=== PATIENT | female | born 2000 | race Caucasian/White ===

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

== ENCOUNTER 2019-05-02 13:55 | Emergency (ER) | payer OTHER ==
[2019-05-02 14:03] VITALS: BP 120/57; PULSE 69; RESP 18; TEMP 98.4
[2019-05-02 15:01] LABS: Basophils # (A) 0.1 k/uL (0-0.2); Basophils % (A) 1 %; Eosinophils # (A) 0.3 k/uL (0-0.7); Eosinophils % (A) 3 %; HCT 45.7 % (34.0-46.0); HGB 14.8 gm/dL (11.4-16.0); Lymphocytes # (A) 2.1 k/uL (1.0-4.8); Lymphocytes % (A) 18 %; MCH 29.2 pg (25.0-35.0); MCHC 32.5 g/dL (31.0-37.0); MCV 89.8 fL (80.0-100.0); Mean Platelet Volume 7.6; Monocytes # (A) 0.6 k/uL (0-1.0); Monocytes % (A) 5 %; Neutrophils # (A) 8.1 k/uL (1.3-7.7); Neutrophils % (A) 72 %; Platelet Count 319 k/uL (150-450); RBC 5.08 m/uL (3.80-5.40); RDW 12.8 % (11.5-15.5); WBC 11.4 k/uL (4.0-11.0)
[2019-05-02 15:12] LABS: ALT 21 U/L (9-52); AST 23 U/L (14-36); African American GFR (CKD) >90 (>60 ml/min/1.73 sqM); Albumin 5.1 g/dL (3.5-5.0); Alkaline Phosphatase 49 U/L (38-126); Anion Gap 11 mmol/L; Blood Urea Nitrogen 13 mg/dL (7-17); Carbon Dioxide 22 mmol/L (22-30); Chloride 107 mmol/L (98-107); Glucose 94 mg/dL (74-99); Potassium 4.5 mmol/L (3.5-5.1); Sodium 140 mmol/L (137-145); Total Bilirubin 0.3 mg/dL (0.2-1.3); Total Protein 8.4 g/dL (6.3-8.2)
[2019-05-02 15:26] LABS: Appearance,Urine Clear (Clear); Bilirubin,Urine Negative (Negative); Blood,Urine Moderate (Negative); Color,Urine Yellow; Glucose,Urine (UA) Negative (Negative); Ketones,Urine Negative (Negative); Leukocyte Esterase,Urine Negative (Negative); Mucus,Urine Rare /hpf; Nitrite,Urine Negative (Negative); Protein,Urine Negative (Negative); RBC,Urine 1 /hpf (0-5); Squamous Epithelial Cell,Urine 2 /hpf (0-4); Urobilinogen,Urine <2.0 mg/dL (<2.0); WBC,Urine 1 /hpf (0-5)
[2019-05-02 15:27] LABS: HCG,Quantitative Serum 4256.5 mIU/mL
--- NOTE | 2019-05-02 15:35 | US ---
EXAMINATION TYPE: Ultrasound OB <= 14 WEEKS TRANSVAGINAL DATE OF EXAM: 05/02/2019 3:10 PM COMPARISON: NONE CLINICAL HISTORY: 19-year-old female pain. Spotting x 1 hour EXAM PERFORMED: Transvaginal (TV) and Transabdominal (TA) FINDINGS: EXAM MEASUREMENTS: GESTATIONAL AGE / DATING Physician Established: Not established yet Dates by LMP: Unknown Dates by First Scan: This is 1st scan Dates by Current Scan for: No pole or yolk sac seen MATERNAL ANATOMY Uterus: 8.8 x 4.2 x 6.2cm, anteverted Right Ovary: 3.4 x 2.0 x 2.1cm Left Ovary: not seen Post CDS / Adnexa: wnl Presence of free fluid: no Presence of corpus luteal cyst: not seen Presence of subchorionic bleed: 1.5 x 1.1 x 1.2cm hypoechoic area seen GESTATION / SURVEY No pole or yolk sac seen at this time MSD: 0.9cm Measurement out of range: too early to date Date of LMP: Unknown Beta HcG (if available): Not available at time of exam. IMPRESSION: 1. Cystic locule within the uterus, possible gestational sac measuring 9 mm. Differential considerati ons include early intrauterine , failed , and pseudogestational sac of a nonvisuali zed ectopic . Note that a yolk sac should be seen with an MSD of 10 mm. Therefore, appropria te follow-up is recommended. 2. A 1.5 cm perigestational bleed adjacent to the probable gestational sac.
--- NOTE | 2019-05-02 17:04 | ED ---
Female Urogenital HPI - General Chief complaint: Vaginal Bleeding Stated complaint: 5 wks preg/bleeding Time Seen by Provider: 05/02/19 14:05 Source: patient Mode of arrival: ambulatory Limitations: no limitations - History of Present Illness Initial comments: Patient is a 19-year-old, 4 week , female presents to emergency department with 1 day of vaginal bleeding. Patient reports that she found out was using a home test. Patient reports she went to her primary care physician who collect a beta Quant and determined that she was . Patient reports mild abdominal cramping but denies back pain, flank pain, vaginal discharge, increased frequency or urgency, dysuria, hematuria, hematochezia or melena.. Patient denies headache, syncope, shortness of breath, chest pain nausea, vomiting or diarrhea. Patient denies taking medication to alleviate the pain. - Related Data Home Medications Medication Instructions Recorded Confirmed guaiFENesin [Mucinex] 600 mg PO Q12H PRN 11/07/18 11/07/18 Allergies Allergy/AdvReac Type Severity Reaction Status Date / Time No Known Allergies Allergy Verified 05/02/19 14:03 Review of Systems ROS Statement: Those systems with pertinent positive or pertinent negative responses have been documented in the HPI. ROS Other: All systems not noted in ROS Statement are negative. Past Medical History Past Medical History: Pneumonia Additional Past Medical History / Comment(s): suicidal thoughts, depression, anxiety History of Any Multi-Drug Resistant Organisms: None Reported Past Surgical History: No Surgical Hx Reported Past Psychological History: Anxiety, Depression Smoking Status: Never smoker Past Alcohol Use History: None Reported Past Drug Use History: Marijuana General Exam Limitations: no limitations General appearance: alert, in no apparent distress Head exam: Present: atraumatic, normocephalic, normal inspection Eye exam: Present: normal appearance, PERRL, EOMI Pupils: Present: normal accommodation ENT exam: Present: normal exam Neck exam: Present: normal inspection Respiratory exam: Present: normal lung sounds bilaterally Cardiovascular Exam: Present: regular rate, normal rhythm, normal heart sounds GI/Abdominal exam: Present: soft. Absent: tenderness External exam: Present: erythema. Absent: swelling, lesions, lacerations Speculum exam: Present: vaginal bleeding (Mild), other (Closed cervical os) Extremities exam: Present: normal inspection, full ROM, normal capillary refill Back exam: Present: normal inspection, full ROM. Absent: CVA tenderness (R), CVA tenderness (L) Neurological exam: Present: alert, oriented X3 Psychiatric exam: Present: normal affect, normal mood Skin exam: Present: warm, intact, normal color Course Vital Signs 05/02/19 05/02/19 14:01 17:40 Temperature 98.4 F 98.4 F Pulse Rate 69 Respiratory 18 18 Rate Blood Pressure 120/57 O2 Sat by Pulse 99 99 Oximetry Medical Decision Making - Medical Decision Making Patient is a 19-year-old, 4 week , female presents emergency Department for 1 day of vaginal bleeding. CBC and CMP are unremarkable. Beta Quant is a proximally 4200. Transvaginal ultrasound was not able to detect a pole or yolk sac. Transvaginal ultrasound is able to take a cystic locule in the uterus measuring 9 mm. With a beta Quant level 4200 an intrauterine should be visible on the ultrasound patient advised to have a repeat beta hCG Quant and transvaginal ultrasound after 48 hours. Patient advised to follow-up with Dr. Sykes who was consulted regarding this case. The case was thoroughly discussed with Dr. Matamoros who also examined the patient and is in agreement with the treatment plan. - Lab Data Result diagrams: 05/02/19 14:33 05/02/19 14:33 Lab Results 05/02/19 05/02/19 05/02/19 Range/Units 14:33 14:33 14:33 WBC 11.4 H (4.0-11.0) k/uL RBC 5.08 (3.80-5.40) m/uL Hgb 14.8 (11.4-16.0) gm/dL Hct 45.7 (34.0-46.0) % MCV 89.8 (80.0-100.0) fL MCH 29.2 (25.0-35.0) pg MCHC 32.5 (31.0-37.0) g/dL RDW 12.8 (11.5-15.5) % Plt Count 319 (150-450) k/uL Neutrophils % 72 % Lymphocytes % 18 % Monocytes % 5 % Eosinophils % 3 % Basophils % 1 % Neutrophils # 8.1 H (1.3-7.7) k/uL Lymphocytes # 2.1 (1.0-4.8) k/uL Monocytes # 0.6 (0-1.0) k/uL Eosinophils # 0.3 (0-0.7) k/uL Basophils # 0.1 (0-0.2) k/uL Sodium 140 (137-145) mmol/L Potassium 4.5 (3.5-5.1) mmol/L Chloride 107 (98-107) mmol/L Carbon Dioxide 22 (22-30) mmol/L Anion Gap 11 mmol/L BUN 13 (7-17) mg/dL Creatinine 0.58 (0.52-1.04) mg/dL Est GFR (CKD-EPI)AfAm >90 (>60 ml/min/1.73 sqM) Est GFR (CKD-EPI)NonAf >90 (>60 ml/min/1.73 sqM) Glucose 94 (74-99) mg/dL Calcium 10.0 (8.4-10.2) mg/dL Total Bilirubin 0.3 (0.2-1.3) mg/dL AST 23 (14-36) U/L ALT 21 (9-52) U/L Alkaline Phosphatase 49 (38-126) U/L Total Protein 8.4 H (6.3-8.2) g/dL Albumin 5.1 H (3.5-5.0) g/dL HCG, Quant 4256.5 mIU/mL Urine Color Urine Appearance (Clear) Urine pH (5.0-8.0) Ur Specific [place] (1.001-1.035) Urine Protein (Negative) Urine Glucose (UA) (Negative) Urine Ketones (Negative) Urine Blood (Negative) Urine Nitrite (Negative) Urine Bilirubin (Negative) Urine Urobilinogen (<2.0) mg/dL Ur Leukocyte Esterase (Negative) Urine RBC (0-5) /hpf Urine WBC (0-5) /hpf Ur Squamous Epith Cells (0-4) /hpf Urine Mucus (None) /hpf Blood Type A Positive Blood Type Recheck No Antibody Screen NEGATIVE Spec Expiration Date 05/05/2019 - 233205/02/19 Range/Units 15:15 WBC (4.0-11.0) k/uL RBC (3.80-5.40) m/uL Hgb (11.4-16.0) gm/dL Hct (34.0-46.0) % MCV (80.0-100.0) fL MCH (25.0-35.0) pg MCHC (31.0-37.0) g/dL RDW (11.5-15.5) % Plt Count (150-450) k/uL Neutrophils % % Lymphocytes % % Monocytes % % Eosinophils % % Basophils % % Neutrophils # (1.3-7.7) k/uL Lymphocytes # (1.0-4.8) k/uL Monocytes # (0-1.0) k/uL Eosinophils # (0-0.7) k/uL Basophils # (0-0.2) k/uL Sodium (137-145) mmol/L Potassium (3.5-5.1) mmol/L Chloride (98-107) mmol/L Carbon Dioxide (22-30) mmol/L Anion Gap mmol/L BUN (7-17) mg/dL Creatinine (0.52-1.04) mg/dL Est GFR (CKD-EPI)AfAm (>60 ml/min/1.73 sqM) Est GFR (CKD-EPI)NonAf (>60 ml/min/1.73 sqM) Glucose (74-99) mg/dL Calcium (8.4-10.2) mg/dL Total Bilirubin (0.2-1.3) mg/dL AST (14-36) U/L ALT (9-52) U/L Alkaline Phosphatase (38-126) U/L Total Protein (6.3-8.2) g/dL Albumin (3.5-5.0) g/dL HCG, Quant mIU/mL Urine Color Yellow Urine Appearance Clear (Clear) Urine pH 6.0 (5.0-8.0) Ur Specific [place] 1.020 (1.001-1.035) Urine Protein Negative (Negative) Urine Glucose (UA) Negative (Negative) Urine Ketones Negative (Negative) Urine Blood Moderate H (Negative) Urine Nitrite Negative (Negative) Urine Bilirubin Negative (Negative) Urine Urobilinogen <2.0 (<2.0) mg/dL Ur Leukocyte Esterase Negative (Negative) Urine RBC 1 (0-5) /hpf Urine WBC 1 (0-5) /hpf Ur Squamous Epith Cells 2 (0-4) /hpf Urine Mucus Rare H (None) /hpf Blood Type Blood Type Recheck Antibody Screen Spec Expiration Date Disposition Clinical Impression: Vaginal bleeding Disposition: HOME SELF-CARE Condition: Stable Instructions (If sedation given, give patient instructions): Ectopic (DC), Threatened Miscarriage (ED) Additional Instructions: Please obtain a follow-up beta hCG Quant after 48 hours. Please follow up with OB. Please return to emergency department if symptoms worsen. Is patient prescribed a controlled substance at d/c from ED?: No Referrals: Duane Goyal DO [Primary Care Provider] - 1-2 days Elaine Sykes MD [STAFF PHYSICIAN] - 1-2 days Time of Disposition: 17:03
== END 2019-05-02 17:40 | disposition home or self-care (01) ==
LOC: EC 13:55
DX: N93.9 Abnormal uterine and vaginal bleeding, unspecified (principal); R10.9 Unspecified abdominal pain
CPT/HCPCS: 36415; 76801; 76817; 80053; 81001; 84702; 85025; 86850; 86900; 86901; 99284

== ENCOUNTER 2019-05-04 06:35 | Emergency (ER) | payer OTHER ==
[2019-05-04 06:45] VITALS: TEMP 98.5
--- NOTE | 2019-05-04 07:30 | ED ---
Female Urogenital HPI - General Chief complaint: Vaginal Bleeding Stated complaint: Vaginal Bleeding, pgt Time Seen by Provider: 05/04/19 07:05 Source: patient, RN notes reviewed, old records reviewed Mode of arrival: ambulatory Limitations: no limitations - History of Present Illness Initial comments: 19-year-old female presented today for evaluation for complaints of vaginal bleeding. She was sinus with threatened miscarriage 2 days ago. Head that time her hCG levels 4300. Patient states that she had minimal bleeding over the past 2 days but this morning woke up to have a clotting. Patient reports that she has had no other symptoms at this time. Denies any dizziness or lightheadedness. Patient states that she is a Patient. She was supposed to follow-up with Dr. solano today was concerned with the cramping and clots. She stated that she felt she did come to ER for reevaluation. - Related Data Home Medications Medication Instructions Recorded Confirmed Wra-Ppzd-Clkfr Acid 1 cap PO DAILY 05/04/19 05/04/19 [-U Capsule (formulary)] Allergies Allergy/AdvReac Type Severity Reaction Status Date / Time No Known Allergies Allergy Verified 05/04/19 07:36 Review of Systems ROS Statement: Those systems with pertinent positive or pertinent negative responses have been documented in the HPI. ROS Other: All systems not noted in ROS Statement are negative. Past Medical History Past Medical History: Pneumonia Additional Past Medical History / Comment(s): suicidal thoughts, depression, anxiety History of Any Multi-Drug Resistant Organisms: None Reported Past Surgical History: No Surgical Hx Reported Past Psychological History: Anxiety, Depression Smoking Status: Never smoker Past Alcohol Use History: None Reported Past Drug Use History: Marijuana General Exam - General Exam Comments Initial Comments: 19-year-old female. Alert and oriented. No distress. Limitations: no limitations General appearance: alert, in no apparent distress Head exam: Present: atraumatic, normocephalic, normal inspection Eye exam: Present: normal appearance, PERRL, EOMI. Absent: scleral icterus, conjunctival injection, periorbital swelling ENT exam: Present: normal exam, mucous membranes moist Neck exam: Present: normal inspection. Absent: tenderness, meningismus, lymphadenopathy Respiratory exam: Present: normal lung sounds bilaterally. Absent: respiratory distress, wheezes, rales, rhonchi, stridor Cardiovascular Exam: Present: regular rate, normal rhythm, normal heart sounds. Absent: systolic murmur, diastolic murmur, rubs, gallop, clicks GI/Abdominal exam: Present: soft, normal bowel sounds. Absent: distended, tenderness, guarding, rebound, rigid Extremities exam: Present: normal inspection, full ROM, normal capillary refill. Absent: tenderness, pedal edema, joint swelling, calf tenderness Back exam: Present: normal inspection Neurological exam: Present: alert, oriented X3, CN II-XII intact Psychiatric exam: Present: normal affect, normal mood Skin exam: Present: warm, dry, intact, normal color. Absent: rash Course Vital Signs 05/04/19 06:41 Temperature 98.5 F Pulse Rate 70 Respiratory 20 Rate Blood Pressure 147/87 O2 Sat by Pulse 100 Oximetry Medical Decision Making - Medical Decision Making 19-year-old female presents or shortness of vaginal bleeding. She was sinus with a miscarriage 2 days. At this time patient's hCG level is 2800. This is decreased from her previous one of 4200. Discussed the patient's likely complete miscarriage. Patient is A+ blood type. Patient denies a follow-up w [facility]. Her CBC was normal in this. All questions answered. - Lab Data Result diagrams: 05/04/19 07:39 Lab Results 05/04/19 05/04/19 Range/Units 07:39 07:39 WBC 10.0 (4.0-11.0) k/uL RBC 4.85 (3.80-5.40) m/uL Hgb 13.9 (11.4-16.0) gm/dL Hct 43.6 (34.0-46.0) % MCV 89.9 (80.0-100.0) fL MCH 28.7 (25.0-35.0) pg MCHC 31.9 (31.0-37.0) g/dL RDW 12.8 (11.5-15.5) % Plt Count 304 (150-450) k/uL Neutrophils % 71 % Lymphocytes % 18 % Monocytes % 7 % Eosinophils % 2 % Basophils % 0 % Neutrophils # 7.1 (1.3-7.7) k/uL Lymphocytes # 1.8 (1.0-4.8) k/uL Monocytes # 0.7 (0-1.0) k/uL Eosinophils # 0.2 (0-0.7) k/uL Basophils # 0.0 (0-0.2) k/uL HCG, Quant 2836.1 mIU/mL Disposition Clinical Impression: Miscarriage Disposition: HOME SELF-CARE Condition: Good Instructions (If sedation given, give patient instructions): Miscarriage (ED) Additional Instructions: Follow-up with Dr. Sykes. Return to the emergency department if any alarming signs or symptoms occur. Is patient prescribed a controlled substance at d/c from ED?: No Referrals: Duane Goyal DO [Primary Care Provider] - 1-2 days Time of Disposition: 08:34
[2019-05-04 07:52] LABS: Basophils % (A) 0 %; Eosinophils # (A) 0.2 k/uL (0-0.7); Eosinophils % (A) 2 %; HCT 43.6 % (34.0-46.0); HGB 13.9 gm/dL (11.4-16.0); Lymphocytes # (A) 1.8 k/uL (1.0-4.8); Lymphocytes % (A) 18 %; MCH 28.7 pg (25.0-35.0); MCHC 31.9 g/dL (31.0-37.0); MCV 89.9 fL (80.0-100.0); Mean Platelet Volume 7.8; Monocytes # (A) 0.7 k/uL (0-1.0); Monocytes % (A) 7 %; Neutrophils # (A) 7.1 k/uL (1.3-7.7); Neutrophils % (A) 71 %; Platelet Count 304 k/uL (150-450); RBC 4.85 m/uL (3.80-5.40); RDW 12.8 % (11.5-15.5)
[2019-05-04 09:07] VITALS: BP 151/92; PULSE 77; RESP 18
== END 2019-05-04 09:05 | disposition home or self-care (01) ==
LOC: EC 06:35
DX: O03.9 Complete or unspecified spontaneous abortion without complication (principal)
CPT/HCPCS: 36415; 84702; 85025; 99284

== ENCOUNTER 2020-07-02 09:10 | Emergency (ER) | payer OTHER ==
[2020-07-02 09:14] VITALS: RESP 18
[2020-07-02] MEDS ORDERED: ACETAMINOPHEN TAB 500 MG TAB PO STA (09:41)
[2020-07-02] MEDS ORDERED: IBUPROFEN 600 MG TAB PO STA (09:41)
--- NOTE | 2020-07-02 09:44 | ED ---
Fever HPI - General Chief Complaint: Fever Stated Complaint: fever, headache Time Seen by Provider: 07/02/20 09:19 Source: patient, RN notes reviewed, old records reviewed Mode of arrival: ambulatory Limitations: no limitations - History of Present Illness Initial Comments: Patient is a 20-year-old female who presents emergency Department today with com plaints of fever or sore throat and swollen glands for the past 4 days. She denies any history of sick contacts. She denies a significant history of strep infections in the past. Patient denies any recent Motrin or Tylenol but did take that earlier this week for fevers. Patient denies any cough or shortness of breath. - Related Data Home Medications Medication Instructions Recorded Confirmed Zqy-Wnil-Vzgut Acid 1 cap PO DAILY 05/04/19 05/04/19 [-U Capsule (formulary)] Previous Rx's Medication Instructions Recorded Azithromycin [Zithromax Z-pack] 250 mg PO DIRECTED #6 tab 07/02/20 methylPREDNISolone [Medrol Dose 4 mg PO DIRECTED #1 pack 07/02/20 Pack] Allergies Allergy/AdvReac Type Severity Reaction Status Date / Time No Known Allergies Allergy Verified 07/02/20 09:14 Review of Systems ROS Statement: Those systems with pertinent positive or pertinent negative responses have been documented in the HPI. ROS Other: All systems not noted in ROS Statement are negative. Past Medical History Past Medical History: Pneumonia Additional Past Medical History / Comment(s): suicidal thoughts, depression, anxiety History of Any Multi-Drug Resistant Organisms: None Reported Past Surgical History: No Surgical Hx Reported Past Psychological History: Anxiety, Depression Smoking Status: Current every day smoker Past Alcohol Use History: None Reported Past Drug Use History: Marijuana General Exam - General Exam Comments Initial Comments: 20-year-old female. Alert and oriented 3. No significant distress. Limitations: no limitations General appearance: alert, in no apparent distress Head exam: Present: atraumatic, normocephalic, normal inspection Eye exam: Present: normal appearance, PERRL, EOMI. Absent: scleral icterus, conjunctival injection, periorbital swelling ENT exam: Present: normal exam, mucous membranes moist, other (Patient has evidence of tender left-sided anterior cervical lymphadenopathy. Slightly erythematous tonsils. No significant exudates. No uvula deviation) Neck exam: Present: normal inspection. Absent: tenderness, meningismus, lymphadenopathy Respiratory exam: Present: normal lung sounds bilaterally. Absent: respiratory distress, wheezes, rales, rhonchi, stridor Cardiovascular Exam: Present: regular rate, normal rhythm, normal heart sounds. Absent: systolic murmur, diastolic murmur, rubs, gallop, clicks Back exam: Present: normal inspection Neurological exam: Present: alert, oriented X3, CN II-XII intact Psychiatric exam: Present: normal affect, normal mood Course Vital Signs 07/02/20 09:11 Temperature 100.3 F H Pulse Rate 104 H Respiratory 18 Rate Blood Pressure 136/83 O2 Sat by Pulse 99 Oximetry Medical Decision Making - Medical Decision Making 20-year-old female presents with 3 days of fever, swollen lymph nodes. Patient has a low-grade temperature of 100.3 upon arrival. Patient at this time does have some tender cervical lymphadenopathy. Mildly erythematous tonsils. Rapid strep is negative. Will complete culture. Her heterophile test is negative. She was filed for cold appeared she is no other significant symptoms at this time clinically appears well. Discussed likely viral pharyngitis and lymphadenopathy. Discussed waiting for Colton reyes. Discussed return parameters. - Lab Data Lab Results 07/02/20 07/02/20 Range/Units 10:16 10:16 Heterophile Antibody Negative (Negative) Group A Strep Rapid Negative (Negative) Disposition Clinical Impression: Lymphadenopathy of left cervical region, Pharyngitis Disposition: HOME SELF-CARE Condition: Good Instructions (If sedation given, give patient instructions): Pharyngitis (ED), Lymphadenopathy (ED) Additional Instructions: Follow up with PCP. Take steriods. If fever and symptoms persist for another1-2 days start azithromycin. Covid test is pending for the next 2 days. Social distance and self quarantine until these results are done. Return to ED if any alarming signs or symptoms occur. Prescriptions: methylPREDNISolone [Medrol Dose Pack] 4 mg PO DIRECTED #1 pack Azithromycin [Zithromax Z-pack] 250 mg PO DIRECTED #6 tab Is patient prescribed a controlled substance at d/c from ED?: No Referrals: Duane Goyal DO [Primary Care Provider] - 1-2 days Time of Disposition: 10:58
[2020-07-02 11:15] VITALS: BP 141/84; PULSE 84; TEMP 98.4
== END 2020-07-02 11:16 | disposition home or self-care (01) ==
LOC: EC 09:10
DX: J02.9 Acute pharyngitis, unspecified (principal); F17.200 Nicotine dependence, unspecified, uncomplicated; Z20.828 Contact with and (suspected) exposure to other viral communicable diseases
CPT/HCPCS: 36415; 86308; 87081; 87430; 99284; U0003

== ENCOUNTER 2020-07-08 20:41 | Emergency (ER) | payer OTHER ==
[2020-07-08] MEDS ORDERED: SODIUM CHLORIDE 0.9% 1,000 ML IV ONE (20:57)
[2020-07-08] MEDS ORDERED: DEXAMETHASONE SOD PHOSPHATE 4 MG/ML 1 ML VIAL IV STA (21:07)
[2020-07-08] MEDS ORDERED: IBUPROFEN 800 MG TAB PO STA (21:14)
[2020-07-08] MEDS ORDERED: CLINDAMYCIN 600 MG in DEXTROSE 5% IN WATER 50 ML IVPB ONE ×2 (21:15)
--- NOTE | 2020-07-08 21:22 | ED ---
Fever HPI - General Chief Complaint: Fever Stated Complaint: Revisit - Throat Pain Time Seen by Provider: 07/08/20 20:57 Source: patient Mode of arrival: ambulatory Limitations: no limitations - History of Present Illness Initial Comments: 20-year-old female presenting today for chief complaint of right sided throat pain. Patietn states she was here 6 days ago for a sore throat she states she was tested for covid and given steroids she states she was also given a z-pack. patient states she had relief with the steroids but when they ended the pain inc reased. Patient denies PCN allergy, denies difficulty breathing or swallowing. Patient denies additional complaints. Patient appears well nontoxic in no acute distress. She states that her fever began this evening and she took tylenol prior to arrival. - Related Data Home Medications Medication Instructions Recorded Confirmed Neq-Ywpu-Zauir Acid 1 cap PO DAILY 05/04/19 05/04/19 [-U Capsule (formulary)] Previous Rx's Medication Instructions Recorded Azithromycin [Zithromax Z-pack] 250 mg PO DIRECTED #6 tab 07/02/20 methylPREDNISolone [Medrol Dose 4 mg PO DIRECTED #1 pack 07/02/20 Pack] Allergies Allergy/AdvReac Type Severity Reaction Status Date / Time No Known Allergies Allergy Verified 07/08/20 20:55 Review of Systems ROS Statement: Those systems with pertinent positive or pertinent negative responses have been documented in the HPI. ROS Other: All systems not noted in ROS Statement are negative. Past Medical History Past Medical History: Pneumonia Additional Past Medical History / Comment(s): suicidal thoughts, depression, anxiety History of Any Multi-Drug Resistant Organisms: None Reported Past Surgical History: No Surgical Hx Reported Past Psychological History: Anxiety, Depression Smoking Status: Current every day smoker, Vaper Past Alcohol Use History: None Reported Past Drug Use History: Marijuana General Exam - General Exam Comments Initial Comments: General: The patient is awake and alert, in no distress Eye: Pupils are equal, round and reactive to light, extra-ocular movements are intact. No nystagmus. There is normal conjunctiva bilaterally. No signs of icterus. Ears, nose, mouth and throat: There are moist mucous membranes and no oral lesions.oropharynx erythematous with bilateral tonsillar enlargement right slightly larger than the left there is fullness noticed of the tonsillar pillars however no obvious peritonsillar abscess. Uvula is midline moist slightly muffled no tripoding no stridor. No drooling. Tolerating oral secretions Neck: The neck is supple, there is no tenderness or JVD. Cardiovascular: There is a regular rate and rhythm. No murmur, rub or gallop is appreciated. Respiratory: Lungs are clear to auscultation, respirations are non-labored, breath sounds are equal. No wheezes, stridor, rales, or rhonchi. Musculoskeletal: Normal ROM, no tenderness. Strength 5/5. Sensation intact. Pulses equal bilaterally 2+. Neurological: A&O x 3. CN II-XII intact, There are no obvious motor or sensory deficits. Coordination appears grossly intact. Speech is normal. Skin: Skin is warm and dry and no rashes or lesions are noted. Psychiatric: Cooperative, appropriate mood & affect, normal judgment. Limitations: no limitations Course Vital Signs 07/08/20 07/08/20 20:49 23:28 Temperature 102.0 F H 98.9 F Pulse Rate 99 88 Respiratory 20 18 Rate Blood Pressure 193/83 138/85 O2 Sat by Pulse 97 97 Oximetry Medical Decision Making - Medical Decision Making Heterophile +. No LUQ pain or enlargement noted. Labs stable, some elevated AST/ALT which can be expected with disease. Patient does not appear toxic. Uvula midline. Patient given decadron in the ER. Discussed the case in detail my tender for Dr. Schrader. The patient is stable for discharge was symptomatically treatment and close follow up with primary care provider I did discuss spleen precautions patient verbalized understanding was discharged appearing return parameters were discussed - Lab Data Result diagrams: 07/08/20 22:50 07/08/20 21:59 Lab Results 07/08/20 07/08/20 07/08/20 Range/Units 21:59 21:59 22:50 WBC 12.4 H (3.8-10.6) k/uL RBC 4.62 (3.80-5.40) m/uL Hgb 13.2 (11.4-16.0) gm/dL Hct 42.1 (34.0-46.0) % MCV 91.2 (80.0-100.0) fL MCH 28.6 (25.0-35.0) pg MCHC 31.4 (31.0-37.0) g/dL RDW 13.4 (11.5-15.5) % Plt Count 185 (150-450) k/uL Neutrophils % (Manual) 30 % Band Neutrophils % 3 % Lymphocytes % (Manual) 61 % Monocytes % (Manual) 6 % Neutrophils # (Manual) 4.00 (1.3-7.7) k/uL Lymphocytes # (Manual) 7.56 H (1.0-4.8) k/uL Monocytes # (Manual) 0.74 (0-1.0) k/uL Nucleated RBCs 0 (0-0) /100 WBC Manual Slide Review Performed Reactive Lymphocytes Present Sodium 136 L (137-145) mmol/L Potassium 5.2 H (3.5-5.1) mmol/L Chloride 105 (98-107) mmol/L Carbon Dioxide 21 L (22-30) mmol/L Anion Gap 10 mmol/L BUN 12 (7-17) mg/dL Creatinine 0.61 (0.52-1.04) mg/dL Est GFR (CKD-EPI)AfAm >90 (>60 ml/min/1.73 sqM) Est GFR (CKD-EPI)NonAf >90 (>60 ml/min/1.73 sqM) Glucose 92 (74-99) mg/dL Calcium 9.0 (8.4-10.2) mg/dL Total Bilirubin 1.3 (0.2-1.3) mg/dL AST 258 H (14-36) U/L ALT 448 H (4-34) U/L Alkaline Phosphatase 107 (38-126) U/L Total Protein 7.7 (6.3-8.2) g/dL Albumin 4.5 (3.5-5.0) g/dL Heterophile Antibody Positive (Negative) Disposition Clinical Impression: Mononucleosis, Fever, Sore throat Disposition: HOME SELF-CARE Condition: Good Instructions (If sedation given, give patient instructions): Mononucleosis (ED) Additional Instructions: Please use medication as discussed. Please follow-up with family doctor in the next 2 days, please monitor for left upper abdominal pain. Please return to emergency room if the symptoms increase or worsen or for any other concerns. Is patient prescribed a controlled substance at d/c from ED?: No Referrals: Duane Goyal DO [Primary Care Provider] - 1-2 days Time of Disposition: 22:48
[2020-07-08 22:13] LABS: ALT 448 U/L (4-34); African American GFR (CKD) >90 (>60 ml/min/1.73 sqM); Anion Gap 10 mmol/L; Blood Urea Nitrogen 12 mg/dL (7-17); Carbon Dioxide 21 mmol/L (22-30); Chloride 105 mmol/L (98-107); Glucose 92 mg/dL (74-99); Non-African American GFR(CKD) >90 (>60 ml/min/1.73 sqM); Sodium 136 mmol/L (137-145)
[2020-07-08 22:28] LABS: AST 258 U/L (14-36); Albumin 4.5 g/dL (3.5-5.0); Alkaline Phosphatase 107 U/L (38-126); Potassium 5.2 mmol/L (3.5-5.1); Total Bilirubin 1.3 mg/dL (0.2-1.3); Total Protein 7.7 g/dL (6.3-8.2)
--- NOTE | 2020-07-08 22:34 | CT ---
EXAMINATION TYPE: CT soft tissue neck w con DATE OF EXAM: 07/08/2020 COMPARISON: None HISTORY: Fever, neck swelling and pain. CT DLP: 687.3 mGycm Automated exposure control for dose reduction was used. CONTRAST: Performed with IV Contrast, patient injected with 100ml mL of Isovue 300. Images were obtained from the aortic arch to the orbits with IV contrast. There is no evidence of retro-orbital mass. Nasal bone appears intact. Maxilla is intact. There is no rmal aeration of the maxillary sinuses. The parotid glands are symmetric. Submandibular salivary glan ds are symmetric. The mandibular ring is intact. Temporomandibular joints appear normal. Skull base i s intact. There is normal aeration of the mastoid sinuses. External auditory canals appear normal. Th ere is normal aeration of the epitympanic recess bilaterally. Epiglottis is normal. Adenoids appear normal. There is mild bilateral enlargement of the tonsils that measure 2.7 x 1.7 cm. There is no evidence of an abscess. Prevertebral soft tissues appear normal. C ervical vertebra have normal spacing and alignment. The tongue appears normal. There are bilateral mu ltiple enlarged anterior triangle cervical lymph nodes. These measure up to 2.5 cm. There are also a few posterior triangle cervical lymph nodes that measure up to 1.3 cm. Superior mediastinum appears normal. Thyroid gland is symmetric. IMPRESSION: Anterior and posterior triangle cervical lymphadenopathy bilaterally. Mild enlargement of the tonsils. No evidence of a neck abscess.
[2020-07-08 23:00] LABS: HCT 42.1 % (34.0-46.0); HGB 13.2 gm/dL (11.4-16.0); MCH 28.6 pg (25.0-35.0); MCHC 31.4 g/dL (31.0-37.0); MCV 91.2 fL (80.0-100.0); Mean Platelet Volume 8.2; Platelet Count 185 k/uL (150-450); RBC 4.62 m/uL (3.80-5.40); RDW 13.4 % (11.5-15.5); WBC 12.4 k/uL (3.8-10.6)
[2020-07-08 23:22] LABS: Band Neutrophils % 3 %; Lymphocytes # (M) 7.56 k/uL (1.0-4.8); Monocytes # (M) 0.74 k/uL (0-1.0); Neutrophils % (M) 30 %; Nucleated Red Blood Cells 0 /100 WBC (0-0); Reactive Lymphocytes Present; Total Cells Counted 100
[2020-07-08 23:31] VITALS: BP 138/85; PULSE 88; RESP 18; TEMP 98.9
== END 2020-07-08 23:28 | disposition home or self-care (01) ==
LOC: EC 20:41
DX: B27.90 Infectious mononucleosis, unspecified without complication (principal); F17.290 Nicotine dependence, other tobacco product, uncomplicated
CPT/HCPCS: 36415; 80053; 85025; 86308; 70491; 99284; 96365; 96375; 96361; J1100; Q9967

== ENCOUNTER 2020-09-21 02:24 | Emergency (ER) | payer OTHER ==
[2020-09-21 02:32] VITALS: BP 138/80; PULSE 99; TEMP 100.7
[2020-09-21 02:43] VITALS: RESP 20
[2020-09-21] MEDS ORDERED: ACETAMINOPHEN TAB 325 MG TAB PO STA (03:08)
--- NOTE | 2020-09-21 03:11 | ED ---
URI HPI - General Chief Complaint: Upper Respiratory Infection Stated Complaint: Congestion, Weakness Time Seen by Provider: 09/21/20 02:47 Source: patient, family Mode of arrival: ambulatory Limitations: no limitations - History of Present Illness MD Complaint: fever, cough, rhinorrhea, nasal congestion Onset/Timin -: hour(s) Severity: moderate Quality: burning Consistency: constant Improves With: nothing Worsens With: nothing Associated Symptoms: fever, rhinorrhea, nasal congestion, sore throat, cough Treatments Prior to Arrival: none - Related Data Home Medications Medication Instructions Recorded Confirmed Rfh-Vpac-Oplwm Acid 1 cap PO DAILY 05/04/19 05/04/19 [-U Capsule (formulary)] Previous Rx's Medication Instructions Recorded Azithromycin [Zithromax Z-pack (6 250 mg PO DIRECTED #6 tab 07/02/20 tabs)] methylPREDNISolone [Medrol Dose 4 mg PO DIRECTED #1 pack 07/02/20 Pack] Allergies Allergy/AdvReac Type Severity Reaction Status Date / Time No Known Allergies Allergy Verified 09/21/20 02:32 Review of Systems ROS Statement: Those systems with pertinent positive or pertinent negative responses have been documented in the HPI. ROS Other: All systems not noted in ROS Statement are negative. Constitutional: Reports: fever. Denies: chills, weakness ENT: Reports: throat pain, congestion. Denies: ear pain, hearing loss Respiratory: Reports: cough. Denies: dyspnea, wheezes, hemoptysis Cardiovascular: Denies: chest pain, palpitations, edema Gastrointestinal: Denies: abdominal pain, nausea, vomiting Genitourinary: Denies: dysuria, hematuria Musculoskeletal: Denies: back pain Skin: Denies: rash Neurological: Denies: headache, weakness Past Medical History Past Medical History: Pneumonia Additional Past Medical History / Comment(s): suicidal thoughts, depression, anxiety History of Any Multi-Drug Resistant Organisms: None Reported Past Surgical History: No Surgical Hx Reported Past Psychological History: Anxiety, Depression Smoking Status: Current every day smoker, Vaper Past Alcohol Use History: None Reported Past Drug Use History: Marijuana General Exam Limitations: no limitations General appearance: alert, in no apparent distress Head exam: Present: atraumatic, normocephalic Eye exam: Present: normal appearance. Absent: scleral icterus, conjunctival injection ENT exam: Present: normal oropharynx Neck exam: Present: normal inspection, full ROM, lymphadenopathy. Absent: tenderness, meningismus Respiratory exam: Present: normal lung sounds bilaterally. Absent: respiratory distress, wheezes, rales, rhonchi, stridor Cardiovascular Exam: Present: regular rate, normal rhythm, normal heart sounds. Absent: systolic murmur, diastolic murmur, rubs, gallop GI/Abdominal exam: Present: soft. Absent: distended, tenderness, guarding, rebound Extremities exam: Present: normal inspection, normal capillary refill. Absent: pedal edema, calf tenderness Back exam: Present: normal inspection. Absent: CVA tenderness (R), CVA tenderness (L) Neurological exam: Present: alert Skin exam: Present: warm, dry, intact, normal color. Absent: rash Course Vital Signs 09/21/20 09/21/20 02:28 02:40 Temperature 100.7 F H Pulse Rate 99 Respiratory 18 20 Rate Blood Pressure 138/80 O2 Sat by Pulse 99 Oximetry Medical Decision Making - Lab Data Lab Results 09/21/20 Range/Units 03:14 Group A Strep Rapid Negative (Negative) Disposition Clinical Impression: Acute upper respiratory infection Disposition: HOME SELF-CARE Condition: Good Instructions (If sedation given, give patient instructions): Upper Respiratory Infection (ED) Is patient prescribed a controlled substance at d/c from ED?: No Referrals: Duane Goyal DO [Primary Care Provider] - 1-2 days
== END 2020-09-21 04:38 | disposition home or self-care (01) ==
LOC: EC 02:24
DX: J06.9 Acute upper respiratory infection, unspecified (principal); F17.200 Nicotine dependence, unspecified, uncomplicated; Z20.828 Contact with and (suspected) exposure to other viral communicable diseases
CPT/HCPCS: 87081; 87430; 99284; U0003

== ENCOUNTER 2021-03-18 20:40 | Emergency (ER) | payer OTHER ==
[2021-03-18 20:52] VITALS: RESP 18; TEMP 97.5
--- NOTE | 2021-03-18 21:06 | ED ---
General Adult HPI - General Chief complaint: Extremity Problem,Nontraumatic Stated complaint: RT wrist pain Time Seen by Provider: 03/18/21 20:52 Source: patient Mode of arrival: ambulatory Limitations: no limitations - History of Present Illness Initial comments: 20 year-old female patient who is 33 weeks presents to the emergency department for evaluation of right wrist pain. States that the pain started after a nap about a week ago. States it hurts worse with movement and certain positions of her thumb. States that she can feel a lump near her wrist that is tender to touch. Denies any known injury. Denies swelling, numbness, or tingling to the hand. Denies taking anything for pain. Does wear and huseyin wrap at times, pain worsens if it is too tight over the lump. Denies any concerns. States baby is moving like normal. - Related Data Home Medications Medication Instructions Recorded Confirmed Csu-Jday-Bxbum Acid 1 cap PO DAILY 05/04/19 05/04/19 [-U Capsule (formulary)] Previous Rx's Medication Instructions Recorded Azithromycin [Zithromax Z-pack (6 250 mg PO DIRECTED #6 tab 07/02/20 tabs)] methylPREDNISolone [Medrol Dose 4 mg PO DIRECTED #1 pack 07/02/20 Pack] Allergies Allergy/AdvReac Type Severity Reaction Status Date / Time No Known Allergies Allergy Verified 03/18/21 20:52 Review of Systems ROS Statement: Those systems with pertinent positive or pertinent negative responses have been documented in the HPI. ROS Other: All systems not noted in ROS Statement are negative. Past Medical History Past Medical History: Pneumonia Additional Past Medical History / Comment(s): suicidal thoughts, depression, anxiety, mono. History of Any Multi-Drug Resistant Organisms: None Reported Past Surgical History: No Surgical Hx Reported Past Psychological History: Anxiety, Depression Smoking Status: Former smoker Past Alcohol Use History: None Reported Past Drug Use History: Marijuana General Exam Limitations: no limitations General appearance: alert, in no apparent distress Respiratory exam: Present: normal lung sounds bilaterally. Absent: respiratory distress, wheezes, rales, rhonchi, stridor Cardiovascular Exam: Present: regular rate, normal rhythm, normal heart sounds. Absent: systolic murmur, diastolic murmur, rubs, gallop, clicks Extremities exam: Present: normal inspection, full ROM, tenderness (Near the right radial head), normal capillary refill, other (There is pea sized moveable mass noted over the radial aspect of the right wrist. Skin is pink, warm, dry. Cap refill less than 3 seconds. Radial pulses 2+.). Absent: pedal edema, joint swelling, calf tenderness Neurological exam: Present: alert, oriented X3, CN II-XII intact Psychiatric exam: Present: normal affect, normal mood Skin exam: Present: warm, dry, intact, normal color. Absent: rash Course Vital Signs 03/18/21 03/18/21 20:48 21:53 Temperature 97.5 F L Pulse Rate 102 H 95 Respiratory 18 18 Rate Blood Pressure 143/80 130/82 O2 Sat by Pulse 100 99 Oximetry Medical Decision Making - Medical Decision Making 20-year-old female patient presents to the emergency department presents for right wrist pain. Physical examination did reveal pea-sized mobile mass to the radial aspect of the right wrist. X-rays obtained and was negative. Neurovascular status intact. We discharged home with orthopedics for further evaluation. Return parameters were discussed in detail. She verbalizes understanding and agrees with this plan. Case discussed with my attending Dr. Emery. - Radiology Data Radiology results: report reviewed, image reviewed 4 views of the right wrist is obtained. Report was reviewed in its entirety. Impression by Dr. Nesbitt shows negative right wrist exam. Disposition Clinical Impression: Right wrist pain, Ganglion cyst of dorsum of right wrist Disposition: HOME SELF-CARE Condition: Good Instructions (If sedation given, give patient instructions): Ganglion Cysts (ED) Additional Instructions: Follow-up with e commerce specialist for further evaluation as soon as possible. Return for any new, worsening, or concerning symptoms. Is patient prescribed a controlled substance at d/c from ED?: No Referrals: Duane Goyal DO [Primary Care Provider] - 1-2 days Michel Renteria DO [Doctor of Osteopathic Medicine] - 1-2 days Time of Disposition: 21:42
--- NOTE | 2021-03-18 21:23 | XR ---
EXAMINATION TYPE: XR wrist complete RT DATE OF EXAM: 03/18/2021 COMPARISON: NONE HISTORY: Wrist pain. TECHNIQUE: 4 views FINDINGS: I see no fracture nor dislocation. Joint spaces are normal. Carpal bones are intact. Radius and ulna appear intact. There are no pathologic calcifications. Scaphoid appears normal. IMPRESSION: Negative right wrist exam.
[2021-03-18 21:54] VITALS: BP 130/82; PULSE 95
== END 2021-03-18 21:55 | disposition home or self-care (01) ==
LOC: EC 20:40
DX: O99.891 Other specified diseases and conditions complicating pregnancy (principal); M67.431 Ganglion, right wrist; Z87.891 Personal history of nicotine dependence; Z3A.33 33 weeks gestation of pregnancy
CPT/HCPCS: 99283

== ENCOUNTER 2021-09-25 17:07 | Emergency (ER) | payer OTHER ==
[2021-09-25 18:24] VITALS: RESP 20; TEMP 99
[2021-09-25] MEDS ORDERED: KETOROLAC 15 MG/ML 1 ML VIAL IM STA (20:51)
[2021-09-25] MEDS ORDERED: KETOROLAC 15 MG/ML 1 ML VIAL IVP STA (20:56)
--- NOTE | 2021-09-25 20:56 | ED ---
General Adult HPI - General Chief complaint: Recheck/Abnormal Lab/Rx Stated complaint: abd pain Time Seen by Provider: 09/25/21 20:42 Source: patient, RN notes reviewed, old records reviewed Mode of arrival: ambulatory Limitations: no limitations - History of Present Illness Initial comments: This is a well-appearing, well-nourished obese 21-year-old female that presents to the emergency room with complaints of waking up today with diffuse abdominal and bilateral rib pain. Patient states that she has no nausea vomiting or diarrhea. She states she did not do anything strenuous. She states it's worse with movement. She did take Motrin with no relief. Her mother gave her a quarter tablet of Flexeril states it did not help. She states that she does have a history of hypertension and takes hydrochlorothiazide. She had a C- section in April and is not sure if this is related to that pain. She is also on the depo shot and is not having periods. -: hour(s) (12) Location: abdomen Radiation: non-radiation Severity scale (1-10): 6 Quality: aching Consistency: intermittent Improves with: immobilization Worsens with: movement Associated Symptoms: denies other symptoms Treatments Prior to Arrival: other (Motrin and a quarter tab of Flexeril) - Related Data Home Medications Medication Instructions Recorded Confirmed Ggv-Ckus-Glduc Acid 1 cap PO DAILY 05/04/19 05/04/19 [-U Capsule (formulary)] Previous Rx's Medication Instructions Recorded Azithromycin [Zithromax Z-pack (6 250 mg PO DIRECTED #6 tab 07/02/20 tabs)] methylPREDNISolone [Medrol Dose 4 mg PO DIRECTED #1 pack 07/02/20 Pack] Allergies Allergy/AdvReac Type Severity Reaction Status Date / Time No Known Allergies Allergy Verified 09/25/21 18:21 Review of Systems ROS Statement: Those systems with pertinent positive or pertinent negative responses have been documented in the HPI. ROS Other: All systems not noted in ROS Statement are negative. Past Medical History Past Medical History: Pneumonia Additional Past Medical History / Comment(s): suicidal thoughts, depression, anxiety, mono. History of Any Multi-Drug Resistant Organisms: None Reported Past Surgical History: No Surgical Hx Reported Past Psychological History: Anxiety, Depression Smoking Status: Vaper Past Alcohol Use History: None Reported Past Drug Use History: Marijuana General Exam Limitations: no limitations General appearance: alert, in no apparent distress Head exam: Present: atraumatic, normocephalic, normal inspection Eye exam: Present: normal appearance, EOMI. Absent: scleral icterus, conjunctival injection, periorbital swelling Neck exam: Present: normal inspection, full ROM. Absent: meningismus Respiratory exam: Present: normal lung sounds bilaterally. Absent: respiratory distress, wheezes, rales, rhonchi, stridor, chest wall tenderness, accessory muscle use Cardiovascular Exam: Present: regular rate, normal rhythm GI/Abdominal exam: Present: soft, normal bowel sounds. Absent: distended, t enderness, guarding, rebound, rigid, mass Extremities exam: Present: normal inspection, full ROM, normal capillary refill. Absent: tenderness, pedal edema, joint swelling, calf tenderness Back exam: Present: normal inspection, full ROM. Absent: CVA tenderness (R), CVA tenderness (L) Neurological exam: Present: alert, oriented X3 Psychiatric exam: Present: normal affect, normal mood Skin exam: Present: warm, dry, intact, normal color. Absent: rash, cyanosis, diaphoretic Course Vital Signs 09/25/21 18:21 Temperature 99.0 F Pulse Rate 73 Respiratory 20 Rate Blood Pressure 153/80 O2 Sat by Pulse 100 Oximetry Medical Decision Making - Medical Decision Making Patient's abdomen is soft with minimal diffuse abdominal tenderness. She states pain is worse with movement. She denies any nausea vomiting or diarrhea. She denies any fevers. She denies any dysuria or vaginal discharge. There is no evidence of leukocytosis, hemoglobin and hematocrit are stable. Her electrolytes are unremarkable. Urinalysis shows negative urine and no signs of infection. X-ray of the abdomen shows normal fecal pattern with no pathologic calcifications of the kidneys or signs of intestinal obstruction or pneumoperitoneum. Her chest x-ray is normal. She was given Toradol and IV fluids Patient will be discharged home to follow up with her primary care doctor and return if any new or worsening symptoms. She is agreeable to this plan of care. She was given a work note for the evening. Case discussed with Dr. Aaron - Lab Data Result diagrams: 09/25/21 21:20 09/25/21 21:20 Lab Results 11/08/21 11/08/21 11/08/21 Range/Units 21:20 21:20 21:20 WBC 10.0 (3.8-10.6) k/uL RBC 4.95 (3.80-5.40) m/uL Hgb 14.1 (11.4-16.0) gm/dL Hct 42.9 (34.0-46.0) % MCV 86.7 (80.0-100.0) fL MCH 28.5 (25.0-35.0) pg MCHC 32.9 (31.0-37.0) g/dL RDW 13.1 (11.5-15.5) % Plt Count 320 (150-450) k/uL MPV 8.3 Neutrophils % 56 % Lymphocytes % 33 % Monocytes % 5 % Eosinophils % 3 % Basophils % 1 % Neutrophils # 5.6 (1.3-7.7) k/uL Lymphocytes # 3.3 (1.0-4.8) k/uL Monocytes # 0.5 (0-1.0) k/uL Eosinophils # 0.3 (0-0.7) k/uL Basophils # 0.1 (0-0.2) k/uL Sodium (137-145) mmol/L Potassium (3.5-5.1) mmol/L Chloride (98-107) mmol/L Carbon Dioxide (22-30) mmol/L Anion Gap mmol/L BUN (7-17) mg/dL Creatinine (0.52-1.04) mg/dL Est GFR (CKD-EPI)AfAm (>60 ml/min/1.73 sqM) Est GFR (CKD-EPI)NonAf (>60 ml/min/1.73 sqM) Glucose (74-99) mg/dL Calcium (8.4-10.2) mg/dL Total Bilirubin (0.2-1.3) mg/dL AST (14-36) U/L ALT (4-34) U/L Alkaline Phosphatase (38-126) U/L Total Protein (6.3-8.2) g/dL Albumin (3.5-5.0) g/dL Amylase (30-110) U/L Lipase (23-300) U/L Urine Color Yellow Urine Appearance Clear (Clear) Urine pH 5.5 (5.0-8.0) Ur Specific [place] 1.027 (1.001-1.035) Urine Protein Negative (Negative) Urine Glucose (UA) Negative (Negative) Urine Ketones 1+ H (Negative) Urine Blood Negative (Negative) Urine Nitrite Negative (Negative) Urine Bilirubin Negative (Negative) Urine Urobilinogen <2.0 (<2.0) mg/dL Ur Leukocyte Esterase Negative (Negative) Urine HCG, Qual Not Detected (Not Detectd) 09/25/21 Range/Units 21:20 WBC (3.8-10.6) k/uL RBC (3.80-5.40) m/uL Hgb (11.4-16.0) gm/dL Hct (34.0-46.0) % MCV (80.0-100.0) fL MCH (25.0-35.0) pg MCHC (31.0-37.0) g/dL RDW (11.5-15.5) % Plt Count (150-450) k/uL MPV Neutrophils % % Lymphocytes % % Monocytes % % Eosinophils % % Basophils % % Neutrophils # (1.3-7.7) k/uL Lymphocytes # (1.0-4.8) k/uL Monocytes # (0-1.0) k/uL Eosinophils # (0-0.7) k/uL Basophils # (0-0.2) k/uL Sodium 140 (137-145) mmol/L Potassium 3.7 (3.5-5.1) mmol/L Chloride 106 (98-107) mmol/L Carbon Dioxide 22 (22-30) mmol/L Anion Gap 12 mmol/L BUN 17 (7-17) mg/dL Creatinine 0.64 (0.52-1.04) mg/dL Est GFR (CKD-EPI)AfAm >90 (>60 ml/min/1.73 sqM) Est GFR (CKD-EPI)NonAf >90 (>60 ml/min/1.73 sqM) Glucose 108 H (74-99) mg/dL Calcium 10.1 (8.4-10.2) mg/dL Total Bilirubin 0.2 (0.2-1.3) mg/dL AST 23 (14-36) U/L ALT 28 (4-34) U/L Alkaline Phosphatase 50 (38-126) U/L Total Protein 7.7 (6.3-8.2) g/dL Albumin 4.7 (3.5-5.0) g/dL Amylase 62 (30-110) U/L Lipase 108 (23-300) U/L Urine Color Urine Appearance (Clear) Urine pH (5.0-8.0) Ur Specific [place] (1.001-1.035) Urine Protein (Negative) Urine Glucose (UA) (Negative) Urine Ketones (Negative) Urine Blood (Negative) Urine Nitrite (Negative) Urine Bilirubin (Negative) Urine Urobilinogen (<2.0) mg/dL Ur Leukocyte Esterase (Negative) Urine HCG, Qual (Not Detectd) Disposition Clinical Impression: Abdominal pain Disposition: HOME SELF-CARE Condition: Good Instructions (If sedation given, give patient instructions): Abdominal Pain (ED) Additional Instructions: Increase your fluid intake, take Motrin as needed for pain and follow-up with your doctor this week. Return to the emergency room with any new or concerning symptoms. Is patient prescribed a controlled substance at d/c from ED?: No Referrals: Duane Goyal DO [Primary Care Provider] - 1-2 days
[2021-09-25 21:34] LABS: Basophils # (A) 0.1 k/uL (0-0.2); Basophils % (A) 1 %; Eosinophils # (A) 0.3 k/uL (0-0.7); Eosinophils % (A) 3 %; HCT 42.9 % (34.0-46.0); HGB 14.1 gm/dL (11.4-16.0); Lymphocytes # (A) 3.3 k/uL (1.0-4.8); Lymphocytes % (A) 33 %; MCH 28.5 pg (25.0-35.0); MCHC 32.9 g/dL (31.0-37.0); MCV 86.7 fL (80.0-100.0); Mean Platelet Volume 8.3; Monocytes # (A) 0.5 k/uL (0-1.0); Monocytes % (A) 5 %; Neutrophils # (A) 5.6 k/uL (1.3-7.7); Neutrophils % (A) 56 %; Platelet Count 320 k/uL (150-450); RBC 4.95 m/uL (3.80-5.40); RDW 13.1 % (11.5-15.5)
[2021-09-25 21:35] LABS: Appearance,Urine Clear (Clear); Bilirubin,Urine Negative (Negative); Blood,Urine Negative (Negative); Color,Urine Yellow; Glucose,Urine (UA) Negative (Negative); Ketones,Urine 1+ (Negative); Leukocyte Esterase,Urine Negative (Negative); Nitrite,Urine Negative (Negative); PH, Urine 5.5 (5.0-8.0); Protein,Urine Negative (Negative); Specific Gravity,Urine 1.027 (1.001-1.035); Urobilinogen,Urine <2.0 mg/dL (<2.0)
[2021-09-25 21:46] LABS: ALT 28 U/L (4-34); AST 23 U/L (14-36); African American GFR (CKD) >90 (>60 ml/min/1.73 sqM); Albumin 4.7 g/dL (3.5-5.0); Alkaline Phosphatase 50 U/L (38-126); Amylase 62 U/L (30-110); Anion Gap 12 mmol/L; Blood Urea Nitrogen 17 mg/dL (7-17); Calcium 10.1 mg/dL (8.4-10.2); Carbon Dioxide 22 mmol/L (22-30); Chloride 106 mmol/L (98-107); Glucose 108 mg/dL (74-99); Lipase 108 U/L (23-300); Non-African American GFR(CKD) >90 (>60 ml/min/1.73 sqM); Potassium 3.7 mmol/L (3.5-5.1); Sodium 140 mmol/L (137-145); Total Bilirubin 0.2 mg/dL (0.2-1.3); Total Protein 7.7 g/dL (6.3-8.2)
--- NOTE | 2021-09-25 21:51 | XR ---
EXAMINATION TYPE: XR abdomen acute w cxr DATE OF EXAM: 09/25/2021 COMPARISON: NONE HISTORY: Abdominal pain TECHNIQUE: 4 views FINDINGS: Heart and mediastinum are normal. Lungs are clear. Diaphragm is normal. There is no sign of intestinal obstruction or pneumoperitoneum. Fecal pattern is normal. There are no pathologic calcifi cations over the kidneys. Bony structures are intact. IMPRESSION: Normal chest. Nonacute abdomen.
[2021-09-25 22:57] VITALS: BP 152/82; PULSE 78
== END 2021-09-25 22:33 | disposition home or self-care (01) ==
LOC: EC 17:07
DX: R10.84 Generalized abdominal pain (principal); F17.290 Nicotine dependence, other tobacco product, uncomplicated; F12.90 Cannabis use, unspecified, uncomplicated
CPT/HCPCS: 36415; 80053; 82150; 83690; 85025; 81003; 81025; 74022; 99284; 96374; J1885

== ENCOUNTER 2023-04-08 21:50 | Emergency (ER) | payer OTHER ==
[2023-04-08] MEDS ORDERED: KETOROLAC 15 MG/ML 1 ML VIAL IM STA (23:12)
--- NOTE | 2023-04-08 23:48 | XR ---
EXAMINATION TYPE: XR lumbar spine 2 or 3V DATE OF EXAM: 04/08/2023 COMPARISON: None HISTORY: Low back pain TECHNIQUE: Three-view lumbar spine FINDINGS: There are 5 lumbar-type vertebral bodies. Pedicles are intact. Disc heights are preserved. Vertebral body heights are preserved. There is some limitation due to body habitus. IMPRESSION: 1. No suspicious osseous abnormality lumbar spine as visualized.
--- NOTE | 2023-04-09 00:04 | ED ---
General Adult HPI - General Chief complaint: Back Pain/Injury Stated complaint: Back Pain Time Seen by Provider: 04/08/23 23:12 Source: patient, RN notes reviewed Mode of arrival: ambulatory Limitations: no limitations - History of Present Illness Initial comments: 23-year-old female with no significant past medical history presents to the emergency department with a chief complaint of low back pain. Patient is complaining of lower back pain with sudden onset 2 days ago. She denies any injury or trauma. She does report that she has been doing heavy lifting at work recently. She denies any fevers, chills loss of bowel or bladder function, saddle paresthesia. She is not taken anything for symptoms. - Related Data Home Medications Medication Instructions Recorded Confirmed Cholecalciferol [Vitamin D3 (25 50 mcg PO DAILY 09/25/21 09/25/21 Mcg = 1000 Iu)] Medroxyprogesterone Acetate 150 mg IM Q84D 09/25/21 09/25/21 [Depo-Provera] hydroCHLOROthiazide 25 mg PO HS 09/25/21 09/25/21 Previous Rx's Medication Instructions Recorded Ketorolac [Toradol] 10 mg PO Q8HR #15 tab 04/09/23 Lidocaine 5% Patch [Lidoderm 5% 1 patch TOPICAL DAILY #7 patch 04/09/23 Patch] Allergies Allergy/AdvReac Type Severity Reaction Status Date / Time No Known Allergies Allergy Verified 09/25/21 22:15 Review of Systems ROS Statement: Those systems with pertinent positive or pertinent negative responses have been documented in the HPI. ROS Other: All systems not noted in ROS Statement are negative. Past Medical History Past Medical History: Pneumonia Additional Past Medical History / Comment(s): suicidal thoughts, depression, anxiety, mono. History of Any Multi-Drug Resistant Organisms: None Reported Past Surgical History: No Surgical Hx Reported Past Psychological History: Anxiety, Depression Smoking Status: Vaper Past Alcohol Use History: None Reported Past Drug Use History: Marijuana General Exam - General Exam Comments Initial Comments: General: Alert, in no acute distress Head: atraumatic normocephalic. Eyes PERRL, EOMI intact, mucous membranes moist Respiratory: Lungs clear to auscultation bilaterally Cardiovascular: Heart rate regular rate and rhythm Abdominal: Soft without guarding or rebound Extremities: Normal inspection with full range of motion and normal capillary refill Neuroogic: alert and oriented 3, CN II-XII intact, able to ambulate with steady gait Skin: warm dry and intact with normal color Limitations: no limitations Course Vital Signs 04/08/23 04/09/23 22:02 01:29 Temperature 98.7 F 97.8 F Pulse Rate 90 99 Respiratory 20 18 Rate Blood Pressure 159/96 122/79 O2 Sat by Pulse 99 97 Oximetry Medical Decision Making - Medical Decision Making Was pt. sent in by a medical professional or institution (NIDHI Stallings, ARCHIVIST, urgent care, hospital, or residential...) When possible be specific @ -No Did you speak to anyone other than the patient for history (EMS, parent, family, police, friend...)? What history was obtained from this source @ - Did you review nursing and triage notes (agree or disagree)? Why? @ -I reviewed and agree with nursing and triage notes Were old charts reviewed (outside hosp., previous admission, EMS record, old EKG, old radiological studies, urgent care reports/EKG's, residential records)? Report findings @ -No old charts were reviewed Differential Diagnosis (chest pain, altered mental status, abdominal pain women, abdominal pain men, vaginal bleeding, weakness, fever, dyspnea, syncope, headache, dizziness, GI bleed, back pain, seizure, CVA, palpatations, mental h ealth, musculoskeletal)? @ -not applicable EKG interpreted by me (3pts min.). @ -As above X-rays interpreted by me (1pt min.). @ Lumbar x-ray negative for any evidence of fracture or dislocation CT interpreted by me (1pt min.). @ -None done U/S interpreted by me (1pt. min.). @ -None done What testing was considered but not performed or refused? (CT, X-rays, U/S, labs)? Why? @ -None What meds were considered but not given or refused? Why? @ -None Did you discuss the management of the patient with other professionals (professionals i.e. NIDHI Stallings, ARCHIVIST, lab, RT, psych nurse, psychologist social, regional account executive, teacher, customs and immigration officer, bottle caser)? Give summary @ -No Was smoking cessation discussed for >3mins.? @ -No Was critical care preformed (if so, how long)? @ -No Were there social determinants of health that impacted care today? How? (Homelessness, low income, unemployed, alcoholism, drug addiction, transportation, low edu. Level, literacy, decrease access to med. care, senior care, rehab)? @ -No Was there de-escalation of care discussed even if they declined (Discuss DNR or withdrawal of care, Hospice)? DNR status @ -No What co-morbidities impacted this encounter? (DM, HTN, Smoking, COPD, CAD, Cancer, CVA, ARF, Chemo, Hep., AIDS, mental health diagnosis, sleep apnea, morbid obesity)? @ -None Was patient admitted / discharged? Hospital course, mention meds given and route, prescriptions, significant lab abnormalities, going to OR and other pertinent info. @ @ - Discharged. This is a 23-year-old female who presents to the emergency department with back pain. Patient had a thorough history and physical exam performed on the ED. Heart rate regular rate and rhythm lungs clear to auscultation bilaterally abdomen is soft and nontender neck exam without step-off. Patient able to ambulate with a steady gait. He had imaging performed which was negative. Discussed results in detail with the patient verbalized understanding and all questions were addressed. She was given Toradol and Lidoderm patches with symptomatic relief. Return precautions were discussed at length. Patient discharged in stable condition. Case discussed with LIS No who agrees with plan of care Undiagnosed new problem with uncertain prognosis? @ -No Drug Therapy requiring intensive monitoring for toxicity (Heparin, Nitro, Insulin, Cardizem)? @ -No Were any procedures done? @ -No Diagnosis/symptom? @ -Low back pain Acute, or Chronic, or Acute on Chronic? @ -acute Uncomplicated (without systemic symptoms) or Complicated (systemic symptoms)? @ -uncomplicated Side effects of treatment? @ -No Exacerbation, Progression, or Severe Exacerbation? @ -No Poses a threat to life or bodily function? How? (Chest pain, [place], [place], pneumonia, PE, COPD, DKA, ARF, appy, cholecystitis, CVA, Diverticulitis, Homicidal, Suicidal, threat to staff... and all critical care pts) @ -low likelihood Disposition Clinical Impression: Mechanical back pain Disposition: HOME SELF-CARE Condition: Stable Instructions (If sedation given, give patient instructions): Acute Low Back Pain (ED) Additional Instructions: Please return to the nearest emergency department if symptoms worsen or persist Prescriptions: Lidocaine 5% Patch [Lidoderm 5% Patch] 1 patch TOPICAL DAILY #7 patch Ketorolac [Toradol] 10 mg PO Q8HR #15 tab Is patient prescribed a controlled substance at d/c from ED?: No Referrals: Duane Goyal DO [Primary Care Provider] - 1-2 days Time of Disposition: 00:03
[2023-04-09 01:31] VITALS: BP 122/79; PULSE 99; RESP 18; TEMP 97.8
== END 2023-04-09 00:40 | disposition home or self-care (01) ==
LOC: EC 21:50
DX: M54.50 Low back pain, unspecified (principal); F17.290 Nicotine dependence, other tobacco product, uncomplicated; F12.90 Cannabis use, unspecified, uncomplicated
CPT/HCPCS: 72100; 99283; 96372; J1885

== ENCOUNTER 2024-10-18 08:58 | Emergency (ER) | payer OTHER ==
[2024-10-18 09:07] VITALS: TEMP 97.4
--- NOTE | 2024-10-18 09:28 | ED ---
General Adult HPI - General Chief complaint: Nausea/Vomiting/Diarrhea Stated complaint: N/D/V Time Seen by Provider: 10/18/24 09:05 Source: patient, RN notes reviewed, old records reviewed Mode of arrival: ambulatory Limitations: no limitations - History of Present Illness Initial comments: This is a 24-year-old female who presents to the emergency department complaining of nausea vomiting diarrhea for 2 months. Patient states that she is a daily user of marijuana. Patient states every day she wakes up she is nauseous she starts vomiting and then she starts having diarrhea. Patient states usually last 3 to 6 hours and then she feels fine the rest of the day. Patient denies any specific abdominal pain. Patient has any back pain. Patient Nu[place] any dysuria hematuria urinary frequency. Patient denies any fever chills or cough. - Related Data Home Medications Medication Instructions Recorded Confirmed Cholecalciferol [Vitamin D3 (25 50 mcg PO DAILY 09/25/21 09/25/21 Mcg = 1000 Iu)] Medroxyprogesterone Acetate 150 mg IM Q84D 09/25/21 09/25/21 [Depo-Provera] hydroCHLOROthiazide 25 mg PO HS 09/25/21 09/25/21 Previous Rx's Medication Instructions Recorded Ketorolac [Toradol] 10 mg PO Q8HR #15 tab 04/09/23 Lidocaine 5% Patch [Lidoderm 5% 1 patch TOPICAL DAILY #7 patch 04/09/23 Patch] Metoclopramide HCl [Reglan] 10 mg PO Q6H PRN #15 tablet 10/18/24 Allergies Allergy/AdvReac Type Severity Reaction Status Date / Time No Known Allergies Allergy Verified 10/18/24 09:01 Review of Systems ROS Statement: Those systems with pertinent positive or pertinent negative responses have been documented in the HPI. ROS Other: All systems not noted in ROS Statement are negative. Past Medical History Past Medical History: Pneumonia Additional Past Medical History / Comment(s): suicidal thoughts, depression, anxiety, mono. History of Any Multi-Drug Resistant Organisms: None Reported Past Surgical History: Section, Hernia Repair Past Psychological History: Anxiety, Depression Smoking Status: Never smoker Past Alcohol Use History: None Reported Past Drug Use History: Marijuana General Exam - General Exam Comments Initial Comments: GENERAL: Patient is well-developed and well-nourished. Patient is nontoxic and well- hydrated and is in mild distress. ENT: Neck is soft and supple. No significant lymphadenopathy is noted. Oropharynx is clear. Moist mucous membranes. Neck has full range of motion without eliciting any pain. EYES: The sclera were anicteric and conjunctiva were pink and moist. Extraocular movements were intact and pupils were equal round and reactive to light. Eyelids were unremarkable. PULMONARY: Unlabored respirations. Good breath sounds bilaterally. No audible rales rhonchi or wheezing was noted. CARDIOVASCULAR: There is a regular rate and rhythm without any murmurs gallops or rubs. ABDOMEN: Soft and nontender with normal bowel sounds. SKIN: Skin is clear with no lesions or rashes and otherwise unremarkable. NEUROLOGIC: Patient is alert and oriented x3. Cranial nerves II through XII are grossly intact. Motor and sensory are also intact. Normal speech, volume and content. Symmetrical smile. MUSCULOSKELETAL: Normal extremities with adequate strength and full range of motion. LYMPHATICS: No significant lymphadenopathy is noted PSYCHIATRIC: Normal psychiatric evaluation. Limitations: no limitations Course Vital Signs 10/18/24 09:01 Temperature 97.4 F L Pulse Rate 75 Respiratory 20 Rate Blood Pressure 133/75 O2 Sat by Pulse 99 Oximetry Medical Decision Making - Medical Decision Making Was pt. sent in by a medical professional or institution (, PA, INFANTRY ASSAULTMAN, urgent care, hospital, or [facility]...) When possible be specific @ -No Did you speak to anyone other than the patient for history (EMS, parent, family, police, friend...)? What history was obtained from this source @ -No Did you review nursing and triage notes (agree or disagree)? Why? @ -I reviewed and agree with nursing and triage notes Were old charts reviewed (outside hosp., previous admission, EMS record, old EKG, old radiological studies, urgent care reports/EKG's, [facility] records)? Report findings @ -No old charts were reviewed Differential Diagnosis? @ -Gastroenteritis, viral syndrome, gastritis, acute diarrhea, EKG interpreted by me (3pts min.). @ -As above X-rays interpreted by me (1pt min.). @ -None done CT interpreted by me (1pt min.). @ -None done U/S interpreted by me (1pt. min.). @ -None done What testing was considered but not performed or refused? (CT, X-rays, U/S, labs)? Why? @ -None What meds were considered but not given or refused? Why? @ -None Did you discuss the management of the patient with other professionals (professionals i.e. , PA, INFANTRY ASSAULTMAN, lab, RT, psych nurse, social worker delinquency prevention, top former, teacher, surface to air weapons officer, child support case officer)? Give summary @ -No Was smoking cessation discussed for >3mins.? @ -No Was critical care preformed (if so, how long)? @ -No Were there social determinants of health that impacted care today? How? (Homelessness, low income, unemployed, alcoholism, drug addiction, transportation, low edu. Level, literacy, decrease access to med. care, [facility], rehab)? @ -No Was there de-escalation of care discussed even if they declined (Discuss DNR or withdrawal of care, Hospice)? DNR status @ -No What co-morbidities impacted this encounter? (DM, HTN, Smoking, COPD, CAD, Cancer, CVA, ARF, Chemo, Hep., AIDS, mental health diagnosis, sleep apnea, morbid obesity)? @ -None Was patient admitted / discharged? Hospital course, mention meds given and route, prescriptions, significant lab abnormalities, going to OR and other p ertinent info. @ -Patient had no more vomiting in the emergency department and no diarrhea. Patient was given Reglan in the emergency department. Undiagnosed new problem with uncertain prognosis? @ -No Drug Therapy requiring intensive monitoring for toxicity (Heparin, Nitro, Insulin, Cardizem)? @ -No Were any procedures done? @ -No Diagnosis/symptom? @ -Gastroenteritis Acute, or Chronic, or Acute on Chronic? @ -Acute Uncomplicated (without systemic symptoms) or Complicated (systemic symptoms)? @ -Uncomplicated Side effects of treatment? @ -No Exacerbation, Progression, or Severe Exacerbation? @ -No Poses a threat to life or bodily function? How? (Chest pain, USA, OR, pneumonia, PE, COPD, DKA, ARF, appy, cholecystitis, CVA, Diverticulitis, Homicidal, Suicidal, threat to staff... and all critical care pts) @ -No - Lab Data Result diagrams: 10/18/24 09:55 10/18/24 09:55 Lab Results 10/18/24 10/18/24 10/18/24 Range/Units 09:55 09:55 09:55 WBC 10.4 (3.8-10.6) k/uL RBC 5.10 (3.80-5.40) m/uL Hgb 14.2 (11.4-16.0) gm/dL Hct 44.0 (34.0-46.0) % MCV 86.3 (80.0-100.0) fL MCH 27.8 (25.0-35.0) pg MCHC 32.2 (31.0-37.0) g/dL RDW 13.6 (11.5-15.5) % Plt Count 282 (150-450) k/uL MPV 8.5 Neutrophils % 72 % Lymphocytes % 20 % Monocytes % 5 % Eosinophils % 2 % Basophils % 0 % Neutrophils # 7.5 (1.3-7.7) k/uL Lymphocytes # 2.1 (1.0-4.8) k/uL Monocytes # 0.5 (0-1.0) k/uL Eosinophils # 0.2 (0-0.7) k/uL Basophils # 0.0 (0-0.2) k/uL Sodium 138 (137-145) mmol/L Potassium 5.6 H (3.5-5.1) mmol/L Chloride 105 (98-107) mmol/L Carbon Dioxide 23 (22-30) mmol/L Anion Gap 10 mmol/L BUN 15 (7-17) mg/dL Creatinine 0.66 (0.52-1.04) mg/dL Est GFR (CKD-EPI)AfAm >90 (>60 ml/min/1.73 sqM) Est GFR (CKD-EPI)NonAf >90 (>60 ml/min/1.73 sqM) Glucose 94 (74-99) mg/dL Plasma Lactic Acid Madan 1.0 (0.7-2.0) mmol/L Calcium 9.8 (8.4-10.2) mg/dL Magnesium 2.0 (1.6-2.3) mg/dL Total Bilirubin 1.4 H (0.2-1.3) mg/dL AST 53 H (14-36) U/L ALT 44 H (4-34) U/L Alkaline Phosphatase 49 (38-126) U/L Total Protein 9.0 H (6.3-8.2) g/dL Albumin 5.3 H (3.5-5.0) g/dL Amylase 53 (30-110) U/L Lipase 72 (23-300) U/L HCG, Quant <2.4 mIU/mL Disposition Clinical Impression: Gastroenteritis Disposition: HOME SELF-CARE Instructions (If sedation given, give patient instructions): Gastroenteritis (ED) Prescriptions: Metoclopramide HCl [Reglan] 10 mg PO Q6H PRN #15 tablet PRN Reason: Nausea And Vomiting Is patient prescribed a controlled substance at d/c from ED?: No Referrals: Duane Goyal DO [Primary Care Provider] - 1-2 days Time of Disposition: 11:27
[2024-10-18] MEDS: SODIUM CHLORIDE 0.9% 1,000 ML IV STA (10:02)
[2024-10-18] MEDS: METOCLOPRAMIDE 5 MG/ML 2 ML VIAL IVP STA (10:02)
[2024-10-18 10:08] LABS: Basophils % (A) 0 %; Eosinophils # (A) 0.2 k/uL (0-0.7); Eosinophils % (A) 2 %; HGB 14.2 gm/dL (11.4-16.0); Lymphocytes # (A) 2.1 k/uL (1.0-4.8); Lymphocytes % (A) 20 %; MCH 27.8 pg (25.0-35.0); MCHC 32.2 g/dL (31.0-37.0); MCV 86.3 fL (80.0-100.0); Mean Platelet Volume 8.5; Monocytes # (A) 0.5 k/uL (0-1.0); Monocytes % (A) 5 %; Neutrophils # (A) 7.5 k/uL (1.3-7.7); Neutrophils % (A) 72 %; Platelet Count 282 k/uL (150-450); RDW 13.6 % (11.5-15.5); WBC 10.4 k/uL (3.8-10.6)
[2024-10-18 10:18] LABS: ALT 44 U/L (4-34); African American GFR (CKD) >90 (>60 ml/min/1.73 sqM); Albumin 5.3 g/dL (3.5-5.0); Amylase 53 U/L (30-110); Anion Gap 10 mmol/L; Blood Urea Nitrogen 15 mg/dL (7-17); Calcium 9.8 mg/dL (8.4-10.2); Carbon Dioxide 23 mmol/L (22-30); Chloride 105 mmol/L (98-107); Glucose 94 mg/dL (74-99); Lipase 72 U/L (23-300); Non-African American GFR(CKD) >90 (>60 ml/min/1.73 sqM); Sodium 138 mmol/L (137-145); Total Bilirubin 1.4 mg/dL (0.2-1.3)
[2024-10-18 10:34] LABS: HCG,Quantitative Serum <2.4 mIU/mL
[2024-10-18 10:49] LABS: AST 53 U/L (14-36); Alkaline Phosphatase 49 U/L (38-126); Potassium 5.6 mmol/L (3.5-5.1)
[2024-10-18] MEDS: DIPHENOX-ATROP 2.5-0.025 MG 1 EACH TAB PO STA (12:12)
[2024-10-18] MEDS: DIPHENOX-ATROP STARTER PACK 8 TAB BTL PO STA (12:13)
[2024-10-18 12:18] VITALS: BP 142/87; PULSE 72; RESP 18
[2024-10-18 23:10] LABS: Hepatitis A Antibody IgM Nonreactive (Nonreactive); Hepatitis B Core IgM Nonreactive (Nonreactive); Hepatitis B Surface Antigen Nonreactive (Nonreactive); Hepatitis C IgG Antibody Nonreactive (Nonreactive)
== END 2024-10-18 12:18 | disposition home or self-care (01) ==
LOC: EC 08:58
DX: K52.9 Noninfective gastroenteritis and colitis, unspecified (principal)
CPT/HCPCS: 36415; 80053; 80074; 82150; 83605; 83690; 83735; 85025; 84702; 99284; 96374; 96361; J2765

== ENCOUNTER 2025-04-23 19:36 | Emergency (ER) | payer OTHER ==
[2025-04-23 19:43] VITALS: TEMP 98.5
[2025-04-23 20:34] LABS: Influenza A Not Detected (Not Detectd); Influenza B Not Detected (Not Detectd); RSV Not Detected (Not Detectd)
--- NOTE | 2025-04-23 20:43 | ED ---
General Adult HPI - General Chief complaint: Upper Respiratory Infection Stated complaint: chest pain,congested, nose running,cough Time Seen by Provider: 04/23/25 19:50 Source: patient, RN notes reviewed Mode of arrival: ambulatory Limitations: no limitations - History of Present Illness Initial comments: This is a 25-year-old female with no reported medical conditions, 19 weeks gestation, presents emergency department with URI symptoms over the past 10+ days. Patient states that she has been experiencing a intermittent dry and productive cough, nasal congestion, body aches, headaches. Patient states that the persistent coughing has been causing a discomfort in her chest. States that the symptoms have worsened over the past few days. - Related Data Home Medications Medication Instructions Recorded Confirmed Cholecalciferol [Vitamin D3 (25 50 mcg PO DAILY 09/25/21 09/25/21 Mcg = 1000 Iu)] Medroxyprogesterone Acetate 150 mg IM Q84D 09/25/21 09/25/21 [Depo-Provera] hydroCHLOROthiazide 25 mg PO HS 09/25/21 09/25/21 Previous Rx's Medication Instructions Recorded Ketorolac [Toradol] 10 mg PO Q8HR #15 tab 04/09/23 Lidocaine 5% Patch [Lidoderm 5% 1 patch TOPICAL DAILY #7 patch 04/09/23 Patch] Metoclopramide HCl [Reglan] 10 mg PO Q6H PRN #15 tablet 10/18/24 predniSONE [Deltasone] 20 mg PO BID 4 Days #8 tab 04/18/25 Azithromycin [Zithromax] 250 mg PO DAILY 4 Days #4 tab 04/23/25 Ipratropium-Albuterol Nebulize 3 ml INHALATION QID #25 each 04/23/25 [Duoneb 0.5 mg-3 mg/3 ml Soln] Allergies Allergy/AdvReac Type Severity Reaction Status Date / Time No Known Allergies Allergy Verified 04/23/25 19:43 Review of Systems ROS Statement: Those systems with pertinent positive or pertinent negative responses have been documented in the HPI. ROS Other: All systems not noted in ROS Statement are negative. Past Medical History Past Medical History: Pneumonia Additional Past Medical History / Comment(s): suicidal thoughts, depression, anxiety, mono. History of Any Multi-Drug Resistant Organisms: None Reported Past Surgical History: Section, Hernia Repair Past Psychological History: Anxiety, Depression Smoking Status: Never smoker Past Alcohol Use History: None Reported Past Drug Use History: None Reported General Exam Limitations: no limitations General appearance: alert, in no apparent distress Neck exam: Present: normal inspection. Absent: tenderness, meningismus, lymphadenopathy Respiratory exam: Present: wheezes. Absent: normal lung sounds bilaterally, respiratory distress, rales, rhonchi, stridor Cardiovascular Exam: Present: regular rate, normal rhythm, normal heart sounds. Absent: systolic murmur, diastolic murmur, rubs, gallop, clicks GI/Abdominal exam: Present: soft, normal bowel sounds. Absent: distended, tende rness, guarding, rebound, rigid Extremities exam: Present: normal inspection, full ROM, normal capillary refill. Absent: tenderness, pedal edema, joint swelling, calf tenderness Back exam: Present: normal inspection Skin exam: Present: warm, dry, intact, normal color. Absent: rash Course Vital Signs 04/23/25 19:39 Temperature 98.5 F Pulse Rate 88 Respiratory 18 Rate Blood Pressure 171/93 O2 Sat by Pulse 100 Oximetry Medical Decision Making - Medical Decision Making Was pt. sent in by a medical professional or institution (, PA, OR RN, urgent care, hospital, or senior living...) When possible be specific @ -No Did you speak to anyone other than the patient for history (EMS, parent, family, police, friend...)? What history was obtained from this source @ -No Did you review nursing and triage notes (agree or disagree)? Why? @ -I reviewed and agree with nursing and triage notes Were old charts reviewed (outside hosp., previous admission, EMS record, old EKG, old radiological studies, urgent care reports/EKG's, senior living records)? Report findings @ -Reviewed patient's ER treatment where she presented for hypertension where workup was benign and patient provided with breathing treatments steroids Differential Diagnosis (chest pain, altered mental status, abdominal pain women, abdominal pain men, vaginal bleeding, weakness, fever, dyspnea, syncope, headache, dizziness, GI bleed, back pain, seizure, CVA, palpatations, mental health, musculoskeletal)? @ -COVID 19, RSV, influenza, pneumonia, acute bronchitis, URI, this list is not all inclusive EKG interpreted by me (3pts min.). @ -None X-rays interpreted by me (1pt min.). @ -None done CT interpreted by me (1pt min.). @ -None done U/S interpreted by me (1pt. min.). @ -None done What testing was considered but not performed or refused? (CT, X-rays, U/S, labs)? Why? @ -Chest x-ray was considered but deferred as patient had a chest x-ray completed within the last week that was unremarkable for acute cardiopulmonary process. To minimize risk of radiation exposure to patient and fetus extremities deferred. What meds were considered but not given or refused? Why? @ -None Did you discuss the management of the patient with other professionals (professionals i.e. Dr., PA, OR RN, lab, RT, psych nurse, medical social worker, aircraft tool maker, teacher, home lending officer, family preservation caseworker)? Give summary @ -No Was smoking cessation discussed for >3mins.? @ -No Was critical care preformed (if so, how long)? @ -No Were there social determinants of health that impacted care today? How? (Homelessness, low income, unemployed, alcoholism, drug addiction, tra nsportation, low edu. Level, literacy, decrease access to med. care, nursing home, rehab)? @ -No Was there de-escalation of care discussed even if they declined (Discuss DNR or withdrawal of care, Hospice)? DNR status @ -No What co-morbidities impacted this encounter? (DM, HTN, Smoking, COPD, CAD, Cancer, CVA, ARF, Chemo, Hep., AIDS, mental health diagnosis, sleep apnea, morbid obesity)? @ -None Was patient admitted / discharged? Hospital course, mention meds given and route, prescriptions, significant lab abnormalities, going to OR and other pertinent info. @ -Discharge. 25-year female presenting with URI symptoms. Patient is hypertensive on arrival with blood pressure 171/93. Patient noted to have mild expiratory wheezing however is in no signs of respiratory distress. As patient had recent x-ray imaging of her chest completed less than 1 week ago we will defer x-ray imaging at this time to minimize radiation exposure to fetus. Patient is treated with DuoNeb breathing treatment and will be treated for bacterial bronchitis with azithromycin. Repeat check blood pressure has mildly decreased. Recommend the patient does contact her OB to follow-up in the next 1 to 3 days for further evaluation of hypertension tach . Return parameters discussed. Case discussed with Dr. Aaron Undiagnosed new problem with uncertain prognosis? @ -No Drug Therapy requiring intensive monitoring for toxicity (Heparin, Nitro, Insulin, Cardizem)? @ -No Were any procedures done? @ -No Diagnosis/symptom? @ -Bacterial bronchitis, hypertension during Acute, or Chronic, or Acute on Chronic? @ -Acute Uncomplicated (without systemic symptoms) or Complicated (systemic symptoms)? @ -Uncomplicated Side effects of treatment? @ -No Exacerbation, Progression, or Severe Exacerbation? @ -No Poses a threat to life or bodily function? How? (Chest pain, USA, [place], pneumonia, PE, COPD, DKA, ARF, appy, cholecystitis, CVA, Diverticulitis, Homicidal, Suicidal, threat to staff... and all critical care pts) @ -No - Lab Data Lab Results 04/23/25 04/23/25 Range/Units 19:44 19:44 Influenza Type A (PCR) Not Detected (Not Detectd) Influenza Type B (PCR) Not Detected (Not Detectd) RSV (PCR) Not Detected (Not Detectd) SARS-CoV-2 (PCR) Not Detected (Not Detectd) Group A Strep (PCR) NOT DETECTED (Not Detectd) Disposition Clinical Impression: Acute bacterial bronchitis Disposition: HOME SELF-CARE Condition: Stable Instructions (If sedation given, give patient instructions): Acute Bronchitis (ED) Additional Instructions: Please return to the Emergency Department if symptoms worsen or any other concerns. Continue to use nebulized breathing treatments at home and complete azithromycin as prescribed. Contact your OB to schedule follow-up in the next 1 to 3 days for further evaluation of hypertension. Prescriptions: Ipratropium-Albuterol Nebulize [Duoneb 0.5 mg-3 mg/3 ml Soln] 3 ml INHALATION QID #25 each Azithromycin [Zithromax] 250 mg PO DAILY 4 Days #4 tab Is patient prescribed a controlled substance at d/c from ED?: No Referrals: Duane Goyal DO [Primary Care Provider] - 1-2 days Time of Disposition: 21:10
[2025-04-23] MEDS: AZITHROMYCIN 500 MG TAB PO STA (21:02)
[2025-04-23] MEDS: IPRATROPIUM-ALBUTEROL 3 ML NEB INHALATION STA (21:25)
[2025-04-23 21:42] VITALS: BP 150/82; PULSE 101; RESP 20
== END 2025-04-23 21:42 | disposition home or self-care (01) ==
LOC: EC 19:36
DX: O99.512 Diseases of the respiratory system complicating pregnancy, second trimester (principal); J20.8 Acute bronchitis due to other specified organisms; B96.89 Other specified bacterial agents as the cause of diseases classified elsewhere; Z3A.19 19 weeks gestation of pregnancy
CPT/HCPCS: 87636; 87651; 94640; 99284